=== PATIENT | male | born 1980 | race African-American/Black ===

== ENCOUNTER 2016-05-23 02:00 | Emergency (ER) | payer OTHER ==
[~2016-05-23] VITALS: Ht 182.9 cm; Wt 90.7 kg
[~2016-05-23 02:00] MED LIST: ACETAMINOPHEN-1 EAC1 PO; AMOXICILLIN 50500 M1; AMOXICILLIN 50500 MG PO; AMOXICILLIN500 M1 PO; BYSTOLIC 5 MG5 MG PO; BYSTOLIC10 MG; CARISOPRODOL 3350 MG PO; DOXYCYCLINE 10100 M1 PO; FLEXERIL PO; HYDROCODONE-AP1 EAC6 PO; IBUPROFEN 600600 M1; IBUPROFEN 600600 M1 PO; IBUPROFEN 800800 M1 PO; IBUPROFEN 800800 MG PO; LIDOCAINE VISC100 M1 MUCOUS MEM; LISINOPRIL10 MG; LISINOPRIL20 MG PO; LISINOPRIL40 MG PO; NAPROSYN500 MG PO; NOHOMEMEDICATIONS; NORCO 5-325 TA1 EACH PO; NORFLEX100 MG PO; PENICILLIN VK250 MG PO; PENICILLIN VK500 M1 PO; PREDNISONE 20 M20 MG PO; PRINIVIL20 MG; TRAMADOL 50 MG50 MG PO; ULTRAM 50MG TAB50 MG PO; ULTRAM50 MG PO; VALIUM5 MG PO; VICODIN 5-5001 EACH PO
[2016-05-23 02:03] VITALS: BP 153/114
[2016-05-23] MEDS ORDERED: TRAMADOL 50 MG50 MG PO (02:25)
[2016-05-23] MEDS ORDERED: PENICILLIN VK500 M1 PO (02:25)
[2016-07-12] MEDS ORDERED: ULTRAM 50MG TAB50 MG PO (14:26)
[2016-07-12] MEDS ORDERED: FLEXERIL PO (14:26)
== END 2016-05-23 02:40 | disposition home or self-care (01) ==
LOC: ER 02:00
DX: K02.9 Dental caries, unspecified (principal); K04.7 Periapical abscess without sinus; I10 Essential (primary) hypertension; Z88.5 Allergy status to narcotic agent

== ENCOUNTER 2016-10-26 21:19 | Emergency (ER) | payer OTHER ==
[~2016-10-26] VITALS: Ht 182.9 cm; Wt 93.0 kg
[2016-10-26 21:27] VITALS: BP 146/108
[2016-10-26] MEDS ORDERED: MOBIC15 MG PO (21:53)
== END 2016-10-26 22:13 | disposition left against medical advice (07) ==
LOC: ER 21:19
DX: S40.012A Contusion of left shoulder, initial encounter (principal); I10 Essential (primary) hypertension; Z88.5 Allergy status to narcotic agent; X50.1XXA Overexertion from prolonged static or awkward postures, initial encounter; Y93.75 Activity, martial arts; Y92.89 Other specified places as the place of occurrence of the external cause; Y99.8 Other external cause status

== ENCOUNTER 2017-03-24 19:07 | Emergency (ER) | payer OTHER ==
[~2017-03-24] VITALS: Ht 182.9 cm; Wt 90.7 kg
[~2017-03-24 19:07] MED LIST changes: +MOBIC15 MG PO
[2017-03-24 19:19] VITALS: BP 171/120
[2017-03-24] MEDS ORDERED: TRAMADOL 50 MG50 MG PO (20:19)
[2017-03-24] MEDS ORDERED: MEDROLDOSEPACK PO (20:19)
[2017-03-24] MEDS ORDERED: FLEXERIL PO (20:19)
[2017-03-24] MEDS ORDERED: PENICILLIN V P500 MG PO (20:20)
== END 2017-03-24 20:39 | disposition home or self-care (01) ==
LOC: ER 19:07
DX: S30.0XXA Contusion of lower back and pelvis, initial encounter (principal); K02.9 Dental caries, unspecified; W22.8XXA Striking against or struck by other objects, initial encounter; Z88.5 Allergy status to narcotic agent; I10 Essential (primary) hypertension; Y93.89 Activity, other specified; Y92.89 Other specified places as the place of occurrence of the external cause; Y99.8 Other external cause status

== ENCOUNTER 2017-08-26 17:12 | Emergency (ER) | payer OTHER ==
[~2017-08-26] VITALS: Ht 182.9 cm; Wt 93.0 kg
[~2017-08-26 17:12] MED LIST changes: +MEDROLDOSEPACK PO; +PENICILLIN V P500 MG PO
[2017-08-26] MEDS ORDERED: MOBIC15 MG PO (17:42)
[2017-08-26] MEDS ORDERED: FLEXERIL PO (17:42)
[2017-08-26 18:01] VITALS: BP 167/117
== END 2017-08-26 18:01 | disposition home or self-care (01) ==
LOC: ER 17:12
DX: M25.512 Pain in left shoulder (principal); I10 Essential (primary) hypertension; Z88.5 Allergy status to narcotic agent

== ENCOUNTER 2019-06-26 23:49 | Emergency (ER) | payer OTHER ==
[~2019-06-26] VITALS: Ht 182.9 cm; Wt 102.1 kg
[2019-06-27] MEDS ORDERED: AMOXICILLIN 50500 M1 PO (00:19)
[2019-06-27] MEDS ORDERED: ULTRAM 50MG TAB50 MG PO (00:19)
[2019-06-27 00:31] VITALS: BP 186/112
== END 2019-06-27 00:32 | disposition home or self-care (01) ==
LOC: ER 23:49
DX: K02.9 Dental caries, unspecified (principal); I10 Essential (primary) hypertension; Z88.6 Allergy status to analgesic agent

== ENCOUNTER 2019-08-31 22:28 | Emergency (ER) | payer OTHER ==
[~2019-08-31] VITALS: Ht 182.9 cm; Wt 99.8 kg
[~2019-08-31 22:28] MED LIST changes: +AMOXICILLIN 50500 M1 PO
[2019-08-31 22:30] VITALS: BP 174/124
[2019-08-31] MEDS ORDERED: NORFLEX100 MG PO (23:20)
[2019-08-31] MEDS ORDERED: NAPROSYN500 MG PO (23:20)
== END 2019-08-31 23:29 | disposition home or self-care (01) ==
LOC: ER 22:28
DX: S29.011A Strain of muscle and tendon of front wall of thorax, initial encounter (principal); M25.512 Pain in left shoulder; I10 Essential (primary) hypertension; Z79.899 Other long term (current) drug therapy; Z88.6 Allergy status to analgesic agent; X58.XXXA Exposure to other specified factors, initial encounter; Y93.89 Activity, other specified; Y92.89 Other specified places as the place of occurrence of the external cause; Y99.8 Other external cause status

== ENCOUNTER 2020-01-09 06:52 | Emergency (ER) | payer OTHER ==
[~2020-01-09] VITALS: Ht 182.9 cm; Wt 97.5 kg
[2020-01-09 06:55] VITALS: BP 175/122
[2020-01-09] MEDS ORDERED: NAPROSYN500 MG PO (07:27)
[2020-01-09] MEDS ORDERED: TRAMADOL 50 MG50 MG PO (07:27)
== END 2020-01-09 07:35 | disposition home or self-care (01) ==
LOC: ER 06:52
DX: S83.411A Sprain of medial collateral ligament of right knee, initial encounter (principal); I10 Essential (primary) hypertension; Z98.890 Other specified postprocedural states; Z79.899 Other long term (current) drug therapy; Z88.5 Allergy status to narcotic agent; V09.9XXA Pedestrian injured in unspecified transport accident, initial encounter; Y93.89 Activity, other specified; Y92.488 Other paved roadways as the place of occurrence of the external cause; Y99.8 Other external cause status

== ENCOUNTER 2020-03-02 02:17 | Emergency (ER) | payer OTHER ==
[~2020-03-02] VITALS: Ht 182.9 cm; Wt 97.5 kg
[2020-03-02 03:40] VITALS: BP 156/106
[2020-03-02] MEDS ORDERED: TRAMADOL 50 MG50 MG PO (03:41)
== END 2020-03-02 03:45 | disposition home or self-care (01) ==
LOC: ER 02:17
DX: M25.512 Pain in left shoulder (principal); I10 Essential (primary) hypertension; Z98.890 Other specified postprocedural states; Z79.899 Other long term (current) drug therapy; Z88.5 Allergy status to narcotic agent; W11.XXXA Fall on and from ladder, initial encounter; Y93.89 Activity, other specified; Y92.89 Other specified places as the place of occurrence of the external cause; Y99.8 Other external cause status

== ENCOUNTER 2020-05-03 03:58 | Emergency (ER) | payer OTHER ==
[~2020-05-03] VITALS: Ht 182.9 cm; Wt 97.5 kg
[2020-05-03] MEDS ORDERED: TRAMADOL 50 MG50 MG PO (05:22)
[2020-05-03 05:25] VITALS: BP 138/111
== END 2020-05-03 05:25 | disposition home or self-care (01) ==
LOC: ER 03:58
DX: S69.82XA Other specified injuries of left wrist, hand and finger(s), initial encounter (principal); I10 Essential (primary) hypertension; Z79.899 Other long term (current) drug therapy; Z88.5 Allergy status to narcotic agent; X50.1XXA Overexertion from prolonged static or awkward postures, initial encounter; Y93.89 Activity, other specified; Y92.89 Other specified places as the place of occurrence of the external cause; Y99.8 Other external cause status

== ENCOUNTER → 2020-07-20 | Emergency (ER) | payer OTHER ==
[~2020-07-20] MED LIST changes: +HYDROCODON-ACE1 EAC7 PO
== END ==
LOC: ER 14:39
DX: Z04.1 Encounter for examination and observation following transport accident (principal); Z53.21 Procedure and treatment not carried out due to patient leaving prior to being seen by health care provider

== ENCOUNTER 2020-07-26 13:14 | Emergency (ER) | payer OTHER ==
[~2020-07-26] VITALS: Ht 182.9 cm; Wt 97.5 kg
[2020-07-26 13:18] VITALS: BP 154/114
[2020-07-26] MEDS ORDERED: VOLTAREN GEL 1100 G2 TOP (14:27)
[2020-07-26] MEDS ORDERED: ULTRAM 50MG TAB50 MG PO (14:37)
== END 2020-07-26 14:51 | disposition home or self-care (01) ==
LOC: ER 13:14
DX: M25.562 Pain in left knee (principal); I10 Essential (primary) hypertension; Z79.1 Long term (current) use of non-steroidal anti-inflammatories (NSAID); Z79.899 Other long term (current) drug therapy; Z88.5 Allergy status to narcotic agent

== ENCOUNTER 2020-09-16 16:00 | Emergency (ER) | payer OTHER ==
[~2020-09-16] VITALS: Ht 152.4 cm; Wt 97.5 kg
[~2020-09-16 16:00] MED LIST changes: +VOLTAREN GEL 1100 G2 TOP
[2020-09-16 16:04] VITALS: BP 162/109
== END 2020-09-16 16:31 | disposition home or self-care (01) ==
LOC: ER 16:00
DX: S83.91XA Sprain of unspecified site of right knee, initial encounter (principal); I10 Essential (primary) hypertension; Z98.890 Other specified postprocedural states; Z88.5 Allergy status to narcotic agent; W03.XXXA Other fall on same level due to collision with another person, initial encounter; Y93.61 Activity, american tackle football; Y92.89 Other specified places as the place of occurrence of the external cause; Y99.8 Other external cause status